=== PATIENT | male | born 1975 | race Two or more races ===

== ENCOUNTER 2016-11-29 20:57 | Emergency (ER) | payer MEDICAID ==
--- NOTE | 2016-11-29 21:33 | EDPHY ---
H & P Time Seen by Provider: 11/29/16 21:16 HPI/ROS: CHIEF COMPLAINT: I have suicidal ideation HISTORY OF PRESENT ILLNESS: Patient is a 41-year-old male who presents to the emergency department via PD on a hold. Patient's leg down the police because he was having suicidal ideation. He states he wants to cut his wrist. He has a superficial cut on his right wrist. He denies any ingestion. He states he has been having these thoughts for the past 2 years. These have worsened recently. REVIEW OF SYSTEMS: My complete review of systems is negative except as mentioned in the HPI. Past Medical/Surgical History: Includes depression Smoking Status: Current every day smoker Physical Exam: Vitals noted GENERAL: No acute distress, alert. HEENT: Eyes normal to inspection, normal pharynx, no signs of dehydration. NECK: No thyromegaly, no lymphadenopathy, supple. RESPIRATORY: Clear to auscultation bilaterally, no rales, rhonchi or wheezing. CVS: Regular rate and rhythm, no rubs, murmurs, or gallops. ABDOMEN: Soft, nontender, nondistended, no organomegaly. BACK: Normal to inspection, no CVA tenderness. SKIN: Normal color, no rash, warm, dry. No pallor. EXTREMITIES: Patient has a superficial abrasion to his right anterior wrist. No lacerations need suture repair. Neurovascularly intact distally. NEURO/PSYCH: Alert and orientedx3, normal mood and affect, normal motor sensory exam. Allergies/Adverse Reactions: carbamazepine [From Tegretol] Allergy (Verified 09/08/16 09:52) Home Medications: Medication Instructions Recorded CLONAZEPAM 09/08/16 GABAPENTIN 09/08/16 Latuda 09/08/16 clonIDINE 09/08/16 Medical Decision Making ED Course/Re-evaluation: In the emergency department I discussed the plan with the patient. I answered all his questions. He is aware he will undergo medical screening and have psychiatric evaluation. 2200: Patient is signed out to Dr. Lemus at change of shift. The patient is stable. Differential Diagnosis: My differential includes but is not limited to suicidal ideation, depression, anxiety, reaction formation, overdose Departure - Departure Clinical Impression: Suicide ideation Depression Qualifiers: Depression Type: unspecified Qualifier Code: (F32.9) Major depressive disorder , single episode, unspecified Condition: Good
[2016-11-29 22:55] LABS: % IMMATURE GRANULYOCYTES 0.2 % (0.0-1.1); ABSOLUTE IMMATURE GRANULOCYTES 0.02 10^3/uL (0.00-0.10); ADD DIFF? NO; ADD MORPH? NO; ADD SCAN? NO; ATYPICAL LYMPHOCYTE FLAG 10 (0-99); FRAGMENT RBC FLAG 0 (0-99); HEMATOCRIT 40.8 % (40.0-51.0); HEMOGLOBIN 14.1 g/dL (13.7-17.5); LEFT SHIFT FLG 0 (0-99); LIPEMIA HEMOLYSIS FLAG 90 (0-99); MEAN CELL HEMOGLOBIN 31.3 pg (27.9-34.1); MEAN CELL HEMOGLOBIN CONCENTR. 34.6 g/dL (32.4-36.7); MEAN CELL VOLUME 90.7 fL (81.5-99.8); MEAN PLATELET VOLUME 10.1 fL (8.7-11.7); PLATELET CLUMPS FLAG 10 (0-99); PLATELET COUNT 251 10^3/uL (150-400); RED CELL DISTRIBUTION WIDTH 13.3 % (11.5-15.2)
[2016-11-29 23:00] LABS: ANION GAP 11 mEq/L (8-16); CARBON DIOXIDE 25 mEq/l (22-31); CHLORIDE 104 mEq/L (97-110); CREATININE 0.9 mg/dL (0.7-1.3); ETHANOL SERUM < 10 mg/dL (0-10); GLOMERULAR FILTRATION RATE > 60; GLUCOSE 100 mg/dL (70-100); POTASSIUM 3.4 mEq/L (3.5-5.2); SODIUM 140 mEq/L (134-144)
[2016-11-30 01:11] VITALS: RESP 16
[2016-11-30 15:22] VITALS: BP 112/64; PULSE 73; TEMP 98.1; O2SAT 97
== END 2016-11-30 20:30 ==
DX: R45.851 Suicidal ideations (principal); F32.9 Major depressive disorder, single episode, unspecified; F17.200 Nicotine dependence, unspecified, uncomplicated
CPT/HCPCS: 80305; G0480